=== PATIENT | female | born 1955 | race American Indian/Alaskan Native ===

== ENCOUNTER 2017-11-09 17:49 | Emergency (ER) | payer SELFPAY ==
[2017-11-09 17:56] VITALS: RESP 18
--- NOTE | 2017-11-09 19:48 | C.PDOC ---
History Of Present Illness 62 year old female with no significant PMHx presents to the ED c/o periodic pain in the right great toe that resolves in their own. Patient is also c/o bilateral knee pain as well as left ankle pain. Patient reports she has never gone to see a doctor for her symptoms. Patient denies trauma, injury, fall, prior history of gout and pseudo gout. Chief Complaint (Nursing): Lower Extremity Problem/Injury History Per: Patient History/Exam Limitations: no limitations Onset/Duration Of Symptoms: Days Current Symptoms Are (Timing): Still Present Recent travel outside of the [place]: No Additional History Per: Patient - Hip Description Of Injury: Other - Knee Description Of Injury: Other - Ankle/Foot Description Of Injury: Other Past Medical History Reviewed: Historical Data, Nursing Documentation, Vital Signs Vital Signs: Last Vital Signs Temp 98.1 F 11/09/17 20:37 Pulse 74 11/09/17 20:37 Resp 18 11/09/17 20:37 BP 149/86 11/09/17 20:37 Pulse Ox 98 11/09/17 20:37 - Medical History PMH: No Chronic Diseases Surgical History: No Surg Hx Family History: States: Unknown Family Hx - Social History Hx Alcohol Use: No Hx Substance Use: No - Immunization History Hx Tetanus Toxoid Vaccination: No Hx Influenza Vaccination: No Hx Pneumococcal Vaccination: No Review Of Systems Constitutional: Negative for: Fever, Chills Cardiovascular: Negative for: Chest Pain Respiratory: Negative for: Shortness of Breath Gastrointestinal: Negative for: Nausea, Vomiting Musculoskeletal: Positive for: Leg Pain, Foot Pain Skin: Negative for: Rash Physical Exam - Physical Exam Appears: Non-toxic, No Acute Distress, Other (Obese) Skin: Normal Color, Warm, Dry Head: Atraumatic, Normacephalic Eye(s): bilateral: Normal Inspection Oral Mucosa: Moist Neck: Normal ROM, Supple Chest: Symmetrical Cardiovascular: Rhythm Regular, No Murmur Respiratory: Normal Breath Sounds, No Rales, No Rhonchi, No Wheezing Gastrointestinal/Abdominal: Soft, No Tenderness, No Guarding, No Rebound Extremity: Normal ROM (pain in right great toe, bilateral knees), Tenderness ( right great toe with warmth, bilateral knees with warmth, left lateral malleolus with warmth. No effusion, erythema), Capillary Refill (< 2 seconds), No Swelling Extremity: Bilateral: Atraumatic Pulses: Left Dorsalis Pedis: Normal, Right Dorsalis Pedis: Normal Neurological/Psych: Oriented x3, Normal Speech, Normal Motor, Normal Sensation Gait: Steady ED Course And Treatment - Laboratory Results Result Diagrams: 11/09/17 19:58 11/09/17 19:58 O2 Sat by Pulse Oximetry: 100 (ON RA) Pulse Ox Interpretation: Normal Medical Decision Making Medical Decision Making: Impression: arthritic inflammation, pseud gout vs gout Plan: * Labs * Colocrys 0.6 mg PO * Indocin 50 mg PO * Prednisone 60 mg PO Disposition - Disposition Referrals: [facility] [Outside] Disposition: HOME/ ROUTINE Disposition Time: 22:51 Condition: GOOD Prescriptions: Colchicine 0.6 mg PO BID PRN #10 capsule PRN Reason: Pain, Severe (8-10) Indomethacin [Indocin] 50 mg PO BID #20 cap Instructions: Osteoarthritis, Gout Forms: General Discharge Instructions, [facility] (Swedish) Print Language: LATVIAN - Clinical Impression Clinical Impression: Arthritis - Scribe Statement The provider has reviewed the documentation as recorded by the Scribe Mathew Alvarez All medical record entries made by the Scribe were at my direction and personally dictated by me. I have reviewed the chart and agree that the record accurately reflects my personal performance of the history, physical exam, medical decision making, and the department course for this patient. I have also personally directed, reviewed, and agree with the discharge instructions and disposition.
[2017-11-09 20:04] LABS: BASO # 0.1 K/uL (0.0-0.2); BASO % 0.9 % (0.0-2.0); EOS # 0.1 K/uL (0.0-0.7); EOS % 1.1 % (0.0-4.0); HEMOGLOBIN 13.4 g/dL (11.0-16.0); LYMPH # 3.3 K/uL (1.0-4.3); LYMPH % 36.5 % (20.0-40.0); MEAN CORPUSCULAR HEMOGLOBIN 28.9 pg (27.0-31.0); MEAN CORPUSCULAR HGB CONC 36.1 g/dL (33.0-37.0); MEAN PLATELET VOLUME 8.6 fL (7.2-11.7); MONO # 0.8 K/uL (0.0-0.8); MONO % 8.4 % (0.0-10.0); NEUT # 4.8 K/uL (1.8-7.0); NEUT % 53.1 % (50.0-75.0); NRBC % 0.3 % (0.0-2.0); RBC 4.63 Mil/uL (3.80-5.20); RED CELL DISTRIBUTION WIDTH 15.1 % (11.5-14.5)
[2017-11-09 20:20] LABS: ALB/GLOB RATIO 0.9 (1.0-2.1); ALBUMIN 4.3 g/dL (3.5-5.0); ALT/SGPT 18 U/L (9-52); AST/SGOT 27 U/L (14-36); BLOOD UREA NITROGEN 22 mg/dL (7-17); CALCIUM 9.5 mg/dl (8.6-10.4); GFR AFRICAN-AMERICAN > 60; GFR NON-AFRICAN AMERICAN > 60; URIC ACID 5.3 mg/dL (2.2-7.5)
[2017-11-09 20:38] VITALS: BP 149/86; PULSE 74; TEMP 98.1
[2017-11-09 22:52] VITALS: O2SAT 100
== END 2017-11-09 21:49 | disposition home or self-care (01) ==
LOC: C.ER 17:49
DX: M19.90 Unspecified osteoarthritis, unspecified site (principal)

== ENCOUNTER 2018-10-28 09:01 | Outpatient (CLI) | payer MEDICAID | END 2018-10-28 09:02 | disposition home or self-care (01) | LOC: C.CARD 09:01 | DX: R06.00 Dyspnea, unspecified (principal) ==

== ENCOUNTER 2018-11-04 13:48 | Emergency (ER) | payer MEDICAID ==
[2018-11-04 13:48] VITALS: BMI 35.7
[2018-11-04 13:54] VITALS: BP 121/77; PULSE 105; RESP 18; TEMP 97.7; O2SAT 96
--- NOTE | 2018-11-04 15:01 | C.PDOC ---
History Of Present Illness 63 year old female with a history of bilateral osteoarthritis in her knees, right worse than left, (bone on bone) presents to the emergency department with complaints of knee pain. Patient reports that she needs a knee replacement, and that she has been seen in the clinic and referred to orthopedics but unable to follow-up for a multitude of reasons. She states that one of the orthopedic surgeons was a hand surgeon, and that another "doesn't work here anymore". Patient reports taking "lots of different medications" which don't help anymore. Patient denies falls, but states that her pain is so great that she is ambulating with a cane recently. Patient states that her most recent "flare-up" has been ongoing for one week. She denies fever, chills, and shortness of breath. Patient also reports a history of lower extremity edema for which she takes water pills. Chief Complaint (Nursing): Lower Extremity Problem/Injury History Per: Patient History/Exam Limitations: no limitations Onset/Duration Of Symptoms: Other (chronic) Current Symptoms Are (Timing): Worse - Knee Description Of Injury: denies: Fell Currently Unable To: Bear Weight (ambulating with cane) Past Medical History Reviewed: Historical Data, Nursing Documentation, Vital Signs Vital Signs: Last Vital Signs Temp 97.7 F 11/04/18 13:51 Pulse 105 H 11/04/18 13:51 Resp 18 11/04/18 13:51 BP 121/77 11/04/18 13:51 Pulse Ox 96 11/04/18 13:51 Primary Care Provider: Albina Ewing M - Medical History PMH: Arthritis Surgical History: No Surg Hx Family History: States: No Known Family Hx - Social History Hx Alcohol Use: No Hx Substance Use: No - Immunization History Hx Tetanus Toxoid Vaccination: No Hx Influenza Vaccination: No Hx Pneumococcal Vaccination: No Review Of Systems Except As Marked, All Systems Reviewed And Found Negative. Constitutional: Negative for: Fever, Chills, Weakness Cardiovascular: Negative for: Chest Pain Respiratory: Negative for: Cough, Shortness of Breath, Hemoptysis Gastrointestinal: Negative for: Vomiting, Abdominal Pain, Diarrhea Musculoskeletal: Positive for: Leg Pain (b/l knee pain) Physical Exam - Physical Exam Appears: Non-toxic, No Acute Distress, Other (morbidly obese) Skin: Normal Color, Warm, Dry Head: Atraumatic, Normacephalic Eye(s): bilateral: Normal Inspection Neck: Normal, Supple Chest: Symmetrical Extremity: Normal ROM (Full ROM to the knees b/l, pain with ROM), Swelling (+1 pitting edema) Pulses: Left Femoral: Normal, Right Femoral: Normal, Left Dorsalis Pedis: Normal, Right Dorsalis Pedis: Normal Neurological/Psych: Oriented x3, Normal Speech, Normal Cognition, Normal Motor, Normal Sensation ED Course And Treatment O2 Sat by Pulse Oximetry: 96 (RA) Pulse Ox Interpretation: Normal Medical Decision Making Medical Decision Making: Plan: Toradol 60mg IM Patient told to follow-up with Dr. Branch Disposition Counseled Patient/Family Regarding: Diagnosis, Need For Followup, Rx Given - Disposition Referrals: Albina Ewing MD [Staff Provider] - Kamaljit Branch III, MD [Staff Provider] - Disposition: HOME/ ROUTINE Disposition Time: 15:14 Condition: STABLE Additional Instructions: MARBELLA BROOKS, thank you for letting us take care of you today. Your provider was Martha Napoles MD and you were treated for KNEE PAIN. The emergency medical care you received today was directed at your acute symptoms. If you were prescribed any medication, please fill it and take as directed. It may take several days for your symptoms to resolve. Return to the Emergency Department if your symptoms worsen, do not improve, or if you have any other problems. Please contact your doctor or call one of the physicians/clinics you have been referred to that are listed on the Patient Visit Information form that is included in your discharge packet. Bring any paperwork you were given at discharge with you along with any medications you are taking to your follow up visit. Our treatment cannot replace ongoing medical care by a primary care provider outside of the emergency department. Thank you for allowing the [facility] team to be part of your care today. Prescriptions: Ketorolac Tromethamine [Toradol] 10 mg PO Q6H PRN #20 tab PRN Reason: Pain, Severe (8-10) Instructions: Joint Pain Forms: [facility] ([place] Islander), General Discharge Instructions - POA Present On Arrival: None - Clinical Impression Clinical Impression: Joint pain - Scribe Statement The provider has reviewed the documentation as recorded by the Scribe (Ventura Hendersonqvi) Provider Attestation: All medical record entries made by the Scribe were at my direction and personally dictated by me. I have reviewed the chart and agree that the record accurately reflects my personal performance of the history, physical exam, medical decision making, and the department course for this patient. I have also personally directed, reviewed, and agree with the discharge instructions and disposition.
== END 2018-11-04 15:32 | disposition home or self-care (01) ==
LOC: C.ER 13:48
DX: M25.562 Pain in left knee (principal); M25.561 Pain in right knee
CPT/HCPCS: 96372; 99284; J1885